=== PATIENT | female | born 1995 | race Hispanic/Latino ===

== ENCOUNTER 2016-08-13 00:30 | Emergency (ER) | payer OTHER ==
[2016-08-13] MEDS ORDERED: MORPHINE 4 MG/ML 1ML SYRINGE As Ordered ONE ×2 (02:31→04:29)
[2016-08-13] MEDS ORDERED: ONDANSETRON 4MG/2ML VIAL (J2405) As Ordered ONE (02:31)
[2016-08-13 02:42] LABS: BASO # 0.2 K/mm3 (0.0-0.2); BASO % 1.5 % (0.0-1.0); EOS # 0.1 K/mm3 (0.0-0.50); EOS % 1.1 % (0.0-3.0); LARGE UNSTAINED CELL # 0.2 K/mm3 (0.0-0.4); LARGE UNSTAINED CELL % 2.1 % (0.0-4.0); LYMPH # 2.8 K/mm3 (1.5-6.5); LYMPH % 24.1 % (24.0-44.0); MEAN CORPUSCULAR HEMOGLOBIN 27.7 pg (27.0-33.0); MEAN CORPUSCULAR HGB CONC 32.6 g/dl (32.0-36.5); MEAN CORPUSCULAR VOLUME 84.9 fl (80.0-96.0); MONO # 0.5 K/mm3 (0.0-0.8); NEUTROPHILS # 7.1 K/mm3 (1.8-7.7); NEUTROPHILS % 66.3 % (36.0-66.0); PLATELET COUNT, AUTOMATED 254 k/mm3 (150-450); RED CELL DISTRIBUTION WIDTH 13.9 % (11.5-14.5); WHITE BLOOD COUNT 10.6 K/mm3 (4.0-10.0)
[2016-08-13 02:48] LABS: CONTROL LINE HCG INT CTR LINE PRESENT
[2016-08-13 02:51] LABS: ANION GAP 7 MEQ/L (8-16); BLOOD UREA NITROGEN 14 MG/DL (7-18); CALCIUM LEVEL 8.8 MG/DL (8.5-10.1); CARBON DIOXIDE LEVEL 28 MEQ/L (21-32); CHLORIDE LEVEL 107 MEQ/L (98-107); CREATININE FOR GFR 0.87 MG/DL (0.55-1.02); GLOMERULAR FILTRATION RATE > 60.0 (>60); GLUCOSE, FASTING 99 MG/DL (70-105); POTASSIUM SERUM 3.5 MEQ/L (3.5-5.1); SODIUM LEVEL 142 MEQ/L (136-145)
[2016-08-13] MEDS ORDERED: ISOVUE-370 76% 100ML VIAL (Q9967) As Ordered ONE (03:03)
--- NOTE | 2016-08-13 04:50 | REPUSA ---
CLINICAL HISTORY: Neck pain. TECHNIQUE: Multiple axial images were obtained through the cervical spine. Images were also reconstru cted in coronal and sagittal planes. The study was performed without IV contrast. COMMENTS: There is no fracture or spondylolisthesis visualized. The paraspinal soft tissues are unremarkable. T here are no lytic or blastic lesions. Straightening of cervical lordosis is seen, suggesting muscular spasm. There is evidence of minimal m ultilevel disk disease, demonstrated by minimal osteophytosis and endplate sclerosis. No significant disk herniation is noted at any level. Canal and foramina remain patent. IMPRESSION: 1. No fracture or spondylolisthesis. 2. Straightening of cervical lordosis is seen, suggesting muscular spasm. 3. Minimal multilevel spondylosis. Thank you for your kind referral of this patient.
--- NOTE | 2016-08-13 05:00 | REPUSA ---
CLINICAL HISTORY: Trauma. TECHNIQUE: Multiple axial CT images were obtained through the thorax with IV contrast material. COMMENTS: There is no evidence of pleural or parenchymal mass. There are no pleural effusions. There is no evid ence of hilar or mediastinal lymphadenopathy. The heart and great vessels are within normal limits. The visualized portions of the liver are of uniform attenuation without mass or defect. There is no i ntra or extrahepatic biliary ductal dilatation. The spleen is unremarkable. The visualized pancreas i s of normal contour and attenuation characteristics. There is no evidence of adrenal mass. The visual ized portions of the kidneys present no abnormalities. The bony structures are free of lytic or blastic lesions. Post contrast images demonstrate no evidence for abnormal enhancement. IMPRESSION: No evidence of acute thoracic pathology. Thank you for your kind referral of this patient.
--- NOTE | 2016-08-13 05:49 | REP ---
Clinical: Trauma. Technique: AP, lateral views of the left tibia / fibula. Findings: The osseous structures and joint spaces are intact and normal. There is no evidence for acute fracture or dislocation. Surrounding soft tissues are unremarkable. No subcutaneous emphysema or radiodense foreign body. Impression: Normal examination. No acute fracture or dislocation. Signed by Bradly Estevez MD 08/13/2016 05:40 A
--- NOTE | 2016-08-13 05:50 | REP ---
Clinical: Trauma. Technique: AP view of the pelvis with neutral and frog lateral views of the right and left hip. Findings: Pelvis and bilateral hips are relatively normal and symmetric. There is no evidence for acute fracture or dislocation. No periarticular calcifications are appreciated. Surrounding soft tissues are normal. Impression: Normal pelvis and bilateral hip radiograph series. Signed by Bradly Estevez MD 08/13/2016 05:41 A
[2016-08-13] MEDS ORDERED: OXYCODONE/APAP 5MG/325MG(BULK) 1 TAB TAB As Ordered ONE (06:36)
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
--- NOTE | 2016-08-13 20:48 | ECGEPIP ---
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
== END 2016-08-13 06:50 | disposition home or self-care (01) ==
LOC: M ED 00:30
DX: S80.12XA Contusion of left lower leg, initial encounter (principal); V47.1XXA Car passenger injured in collision with fixed or stationary object in nontraffic accident, initial encounter; Y92.410 Unspecified street and highway as the place of occurrence of the external cause; Y93.89 Activity, other specified; Y99.8 Other external cause status; Z79.3 Long term (current) use of hormonal contraceptives
CPT/HCPCS: 36415; 70450; 71260; 72125; 73502; 73590; 80048; 84703; 85025; 93005; 93041; 96374; 96375; 96376; 99285; J2405; Q9967

== ENCOUNTER 2017-02-02 13:02 | Emergency (ER) | payer OTHER ==
[~2017-02-02] VITALS: Ht 154.9 cm; Wt 53.0 kg
[2017-02-02] MEDS ORDERED: bcp (13:18)
[2017-02-02] MEDS ORDERED: FLUCONAZOLE 100 MG TAB PO ONE (14:15)
[2017-02-02] MEDS ORDERED: FLUCONAZOLE 50MG TABLET PO ONE (14:15)
[2017-02-02 15:43] VITALS: BP 122/68
== END 2017-02-02 15:45 | disposition home or self-care (01) ==
LOC: M ED 13:52
DX: B37.3 Candidiasis of vulva and vagina (principal)

== ENCOUNTER → 2017-04-15 | Outpatient (CLI) | payer OTHER ==
[~2017-04-15] MED LIST: CONRAY-43 43% 50ML VIAL (Q9960) As Ordered ONE; LIDOCAINE 1% MDV 20ML VIAL As Ordered ONE; TRIAMCINOLONE ACETONIDE SUSP 40 MG/ML VIAL (J3301) As Ordered ONE; bcp
--- NOTE | 2017-04-15 11:58 | REP ---
LEFT HIP ARTHROGRAM: The procedure was performed by NEAL Carlos under the direct supervision of Dr. Allen. The procedure along with its risks, benefits, and complications were discussed with the patient prior to the examination. Informed consent was obtained both verbally and written. The left femoral neck was localized using fluoroscopic guidance. The skin was marked, prepped and draped in the usual sterile fashion. A procedural time-out was performed to ensure that the correct patient, site, and procedure were being performed. Local infiltrative anesthesia was achieved using 1% lidocaine. Under fluoroscopic guidance a 22 gauge spinal needle was inserted and advanced to the femoral neck. 0.5 mL of Conray 60 was injected to verify placement. 10 mL of a solution containing 9 mL of 1% lidocaine and 1 mL of Kenalog 40 was injected into the joint space. The needle was then removed. The patient tolerated the procedure well and had no immediate complications. Fluoroscopy time of 8 seconds were utilized for this procedure. Reviewed by NEAL Hernandze 04/15/2017 12:24 PEdited and Signed by Andrew Allen MD 04/15/2017 03:35 P
== END ==
LOC: M RADPRO 10:38
PROVIDERS: ATTEND Orthopaedic Surgery
DX: M25.552 Pain in left hip (principal); M70.62 Trochanteric bursitis, left hip
CPT/HCPCS: 20610; 77002; J3301; Q9960

== ENCOUNTER 2017-08-20 04:51 | Inpatient (IN) | payer OTHER ==
[2017-08-20 06:26] LABS: BASO # 0.1 10^3/uL (0.0-0.2); BASO % 0.4 % (0.0-1.0); EOS # 0.1 10^3/uL (0.0-0.50); EOS % 1.2 % (0.0-3.0); HEMATOCRIT 40.9 % (36.0-47.0); HEMOGLOBIN 13.4 g/dl (12.0-16.0); IMMATURE GRANULOCYTE % 0.3 % (0-0); LYMPH # 2.9 10^3/uL (1.5-6.5); MEAN CORPUSCULAR HEMOGLOBIN 27.6 pg (27.0-33.0); MEAN CORPUSCULAR HGB CONC 32.8 g/dl (32.0-36.5); MEAN CORPUSCULAR VOLUME 84.2 fl (80.0-96.0); MONO % 8.6 % (0.0-5.0); NEUTROPHILS # 7.1 10^3/uL (1.8-7.7); NEUTROPHILS % 63.5 % (36.0-66.0); PLATELET COUNT, AUTOMATED 314 10^3/uL (150-450); RED BLOOD COUNT 4.86 10^6/uL (4.00-5.40); WHITE BLOOD COUNT 11.2 10^3/uL (4.0-10.0)
[2017-08-20 06:28] LABS: CONTROL LINE HCG INT CTR LINE PRESENT; HCG, SERUM QUALITATIVE NEGATIVE (NEGATIVE)
[2017-08-20 06:44] LABS: ACETAMINOPHEN LEVEL < 2.0 UG/ML (10.0-30.0); ALBUMIN/GLOBULIN RATIO 1.18 (1.00-1.93); ALKALINE PHOSPHATASE 63 U/L (45-117); ALT/SGPT 23 U/L (12-78); ANION GAP 11 MEQ/L (8-16); AST/SGOT 19 U/L (7-37); BILIRUBIN,DIRECT < 0.1 MG/DL (0.0-0.2); BILIRUBIN,TOTAL 0.2 MG/DL (0.2-1.0); BLOOD UREA NITROGEN 11 MG/DL (7-18); CALCIUM LEVEL 8.6 MG/DL (8.5-10.1); CARBON DIOXIDE LEVEL 24 MEQ/L (21-32); CHLORIDE LEVEL 106 MEQ/L (98-107); CREATININE FOR GFR 0.69 MG/DL (0.55-1.30); ETHYL ALCOHOL (ETHANOL) < 0.003 % (0.000-0.010); GLOMERULAR FILTRATION RATE > 60.0 (>60); GLUCOSE, FASTING 100 MG/DL (70-100); POTASSIUM SERUM 4.2 MEQ/L (3.5-5.1); SALICYLATE LEVEL < 1.7 MG/DL (5.0-30.0); SODIUM LEVEL 141 MEQ/L (136-145); TOTAL PROTEIN 7.4 GM/DL (6.4-8.2)
[2017-08-20 06:46] LABS: AMPHETAMINES LEVEL URINE NEGATIVE (NEGATIVE); BARBITURATES URINE NEGATIVE (NEGATIVE); BENZODIAZEPINES URINE NEGATIVE (NEGATIVE); CANNABINOIDS URINE POSITIVE (NEGATIVE); COCAINE METABOLITE URINE NEGATIVE (NEGATIVE); METHADONE URINE NEGATIVE (NEGATIVE); OPIATES URINE NEGATIVE (NEGATIVE); PHENCYCLIDINE URINE NEGATIVE (NEGATIVE)
[2017-08-20] MEDS: ACETAMINOPHEN 325 MG TAB PO (07:10)
[2017-08-20] MEDS: ONDANSETRON 4 MG ORAL DISINTEGRATING TAB (S0181) PO (07:10)
[2017-08-20] MEDS ORDERED: MAALOX 30 ML SUSP *UDC PO (10:15)
[2017-08-20] MEDS ORDERED: traZODone 50 MG TAB PO (10:15)
[2017-08-20] MEDS ORDERED: MOM 30ML SUSPENSION UDC PO (10:15)
[2017-08-20] MEDS: SERTRALINE HCL 25 MG TABLET PO (16:00)
[2017-08-20] MEDS: traZODone 50 MG TAB PO (21:13)
[2017-08-20] MEDS: hydrOXYzine 25 MG TAB PO (21:13)
[2017-08-21] MEDS: SERTRALINE HCL 25 MG TABLET PO (08:31)
[2017-08-21] MEDS: traZODone 50 MG TAB PO (20:50)
[2017-08-21] MEDS: ACETAMINOPHEN TAB 650MG DOSE (2X325MG) PO (20:50)
[2017-08-22 07:19] LABS: HEMATOCRIT 41.7 % (36.0-47.0); HEMOGLOBIN 13.7 g/dl (12.0-16.0); MEAN CORPUSCULAR HEMOGLOBIN 27.5 pg (27.0-33.0); MEAN CORPUSCULAR HGB CONC 32.9 g/dl (32.0-36.5); MEAN CORPUSCULAR VOLUME 83.6 fl (80.0-96.0); PLATELET COUNT, AUTOMATED 307 10^3/uL (150-450); RED BLOOD COUNT 4.99 10^6/uL (4.00-5.40); RED CELL DISTRIBUTION WIDTH 13.7 % (11.5-14.5); WHITE BLOOD COUNT 4.8 10^3/uL (4.0-10.0)
[2017-08-22 07:50] LABS: FREE THYROXINE INDEX 2.4 % (1.3-4.8); T UPTAKE 32 % (30-39); THYROXINE (T4) 7.5 UG/DL (4.5-12.0)
[2017-08-22] MEDS: SERTRALINE 100 MG TAB PO (08:57)
[2017-08-22] MEDS ORDERED: SERTRALINE HCL 50 MG TAB PO (09:00)
[2017-08-22] MEDS: busPIRone 5 MG TAB PO ×3 (09:59→20:22)
[2017-08-22] MEDS: ACETAMINOPHEN TAB 650MG DOSE (2X325MG) PO (16:02)
[2017-08-22] MEDS: PRAZOSIN 1 MG CAP PO (20:22)
[2017-08-22] MEDS: traZODone 100 MG TAB PO (20:22)
[2017-08-23] MEDS: SERTRALINE 100 MG TAB PO (09:02)
[2017-08-23] MEDS: busPIRone 5 MG TAB PO ×3 (09:02→20:23)
[2017-08-23] MEDS: hydrOXYzine 25 MG TAB PO (15:37)
[2017-08-23] MEDS: DOXEPIN 25 MG CAP PO (20:23)
[2017-08-23] MEDS: PRAZOSIN 1 MG CAP PO (20:23)
[2017-08-23] MEDS: ACETAMINOPHEN TAB 650MG DOSE (2X325MG) PO (20:24)
[2017-08-24] MEDS: ACETAMINOPHEN TAB 650MG DOSE (2X325MG) PO (09:41)
[2017-08-24] MEDS: busPIRone 5 MG TAB PO ×3 (09:41→20:10)
[2017-08-24] MEDS: SERTRALINE 100 MG TAB PO (09:41)
[2017-08-24] MEDS: DOXEPIN 25 MG CAP PO (20:10)
[2017-08-24] MEDS: PRAZOSIN 1 MG CAP PO (20:11)
[2017-08-25] MEDS: SERTRALINE 100 MG TAB PO (08:50)
[2017-08-25] MEDS: busPIRone 5 MG TAB PO (08:50)
[2017-08-25] MEDS: hydrOXYzine 25 MG TAB PO (11:36)
== END 2017-08-25 12:10 | disposition home or self-care (01) | DRG 882 ==
LOC: M ED 04:51 → M ED INP 10:10 → M PSY 12:08
DX: F43.23 Adjustment disorder with mixed anxiety and depressed mood (principal); F43.10 Post-traumatic stress disorder, unspecified; M54.5 Low back pain; M25.551 Pain in right hip; M25.552 Pain in left hip; G89.29 Other chronic pain; M79.1 Myalgia; Z91.411 Personal history of adult psychological abuse; Z79.899 Other long term (current) drug therapy; Z81.8 Family history of other mental and behavioral disorders

== ENCOUNTER 2017-08-30 17:01 | Emergency (ER) | payer OTHER ==
[2017-08-30] MEDS ORDERED: valACYclovir HCL 500 MG TAB PO (18:45)
[2017-08-30] MEDS: valACYclovir HCL 500 MG TAB PO ×2 (18:50→19:00)
== END 2017-08-30 19:07 | disposition home or self-care (01) ==
LOC: M ED 17:01
DX: B00.9 Herpesviral infection, unspecified (principal); F41.9 Anxiety disorder, unspecified
CPT/HCPCS: 99283